=== PATIENT | female | born 1980 | race American Indian/Alaskan Native ===

== ENCOUNTER 2018-10-30 13:09 | Day surgery (SDC) | payer BC ==
[2018-10-30] MEDS ORDERED: XYLOCAINE 1% 20 mL ONE (15:00)
[2018-10-30 15:09] LABS: Basophils % (Auto) 0.8 % (0.0-1.8); Eosinophils # (Auto) 0.1 K/mm3 (0.0-0.4); Eosinophils % (Auto) 1.2 % (0.0-4.3); Hematocrit 35.7 % (30.3-42.9); Hemoglobin 12.1 gm/dl (10.1-14.3); Lymphocytes # (Auto) 1.8 K/mm3 (1.2-5.4); Lymphocytes % (Auto) 39.4 % (13.4-35.0); Mean Corpuscular HGB Conc 34 % (30-34); Mean Corpuscular Volume 85 fl (79-97); Monocytes # (Auto) 0.4 K/mm3 (0.0-0.8); Monocytes % (Auto) 9.4 % (0.0-7.3); Platelet Count 276 K/mm3 (140-440); Red Cell Distribution Width 14.2 % (13.2-15.2)
[2018-10-30 15:12] LABS: INR 0.94 (0.87-1.13)
--- NOTE | 2018-10-30 15:48 | Short Stay Summary ---
Short Stay Documentation Date of service: 10/30/18 - History Principal diagnosis: pseudotumor cerebri - Allergies and Medications Current Medications: Allergies No Known Allergies Allergy (Unverified 10/30/18 13:09) - Physical exam General appearance: no acute distress Lungs: Clear to auscultation Heart: Regular rate Extremities: no ischemia, pulses intact, No edema Neurological: Normal gait, Normal speech, Normal tone - Brief post op/procedure progress note Date of procedure: 10/30/18 Pre-op diagnosis: pseudotumor cerebri Post-op diagnosis: same Procedure: flouro guided LP Anesthesia: local Surgeon: REBEKAH BOWEN Estimated blood loss: none Pathology: list (4 csf tubes) Specimen disposition: to lab Condition: stable - Hospital course Hospital course: uneventful - Disposition Condition at discharge: Good Disposition: [id number] TO HOME OR SELFCARE Short Stay Discharge Plan Follow up with: ARIANNA HALEY MD [Primary Care Provider] - 7 Days
--- NOTE | 2018-10-30 15:51 | Fluoroscopy Report ---
FLUOROSCOPY LUMBAR PUNCTURE History: Pseudotumor cerebri. Description of procedure: Informed consent was obtained. Sterile technique was utilized. 1% lidocaine for skin anesthesia. Using fluoroscopy guidance, lumbar puncture was performed at the L2-3 level. There was spontaneous return of clear CSF. The opening pressure was mildly elevated measuring 22 cm of water. 4 CSF tubes were collected for laboratory analysis. No complications. Impression: Successful fluoroscopy guided lumbar puncture. See above.
[2018-10-30 16:41] LABS: Glucose,CSF 56 mg/dL
[2018-10-30 17:00] LABS: Appearance,CSF Clear; Red Blood Cell,CSF 7 /mm3 (0-0); White Blood Cell,CSF 3 /mm3 (1-10)
[2018-10-30 18:02] VITALS: BP 121/64
[2018-10-30 18:02] LABS: Total Cells Counted 25 /mm3
[2018-10-30 18:03] LABS: Basophils CSF 0 %
== END 2018-10-30 17:10 | disposition home or self-care (01) ==
LOC: CATHLABREC 13:09 → EDSTATUS 13:30 → CATHLABREC 17:10
PROVIDERS: ATTEND Psychiatry & Neurology Neurology
DX: G37.0 Diffuse sclerosis of central nervous system (principal); G93.2 Benign intracranial hypertension; K21.9 Gastro-esophageal reflux disease without esophagitis; Z86.2 Personal history of diseases of the blood and blood-forming organs and certain disorders involving the immune mechanism; Z79.899 Other long term (current) drug therapy
CPT/HCPCS: 36415; 62270; 77003; 82947; 83516; 84160; 85025; 85610; 85730; 87116; 89051